=== PATIENT | female | born 1950 | race Caucasian/White ===

== ENCOUNTER 2017-03-07 08:35 | Emergency (ER) | payer MEDICARE, OTHER ==
[2017-03-07] MEDS ORDERED: METHYLPREDNISOLONE PF 125MG/VIAL IM ONE (09:05)
[2017-03-07] MEDS ORDERED: DIPHENHYDRAMINE HCL 25 MG CAPSULE PO ONE (09:07)
--- NOTE | 2017-03-07 09:14 | Emergency Department Record ---
History of Present Illness - General Chief complaint: Rash Stated complaint: RASH,ARMS FACE,ABDOMAN(POISON) Time Seen by Provider: 03/07/17 09:02 Source: Patient Mode of Arrival: Ambulatory Limitations: No limitations - History of Present Illness Initial comments: pt has rash on face, arms and abdomen that is poison faith. complaint: Rash Onset/Timin -: Days(s) Severity: Mild Consistency: Constant Improves with: Topical medication Worsens with: None Context: Other Associated symptoms: Denies other symptoms Treatments Prior to Arrival: Benadryl - Related Data Home Medications Medication Instructions Recorded Confirmed Last Taken Aspirin [Aspir-Low] 81 mg PO DAILY 03/07/17 03/07/17 03/07/17 Atorvastatin Calcium 20 mg PO DAILY 03/07/17 03/07/17 03/06/17 Calcium Carbonate/Vitamin D3 1 tab PO TID 03/07/17 03/07/17 03/07/17 08:55 [Calcium 600 with Vit D Chew Tb] Lisinopril [Lisinopril] 10 mg PO DAILY 03/07/17 03/07/17 03/06/17 Metformin HCl [Metformin HCl] 500 mg PO BID 03/07/17 03/07/17 03/07/17 [place]-3/Dha/Epa/Fish Oil [Fish Oil 1,000 mg PO BID 03/07/17 03/07/17 03/07/17 Conc 1,000 mg Softgel] Paroxetine HCl [Paroxetine HCl] 20 mg PO DAILY 03/07/17 03/07/17 03/07/17 Previous Rx's Medication Instructions Recorded Methylprednisolone [Medrol Dose 4 mg PO ASDIR #1 tab.ds.pk 03/07/17 Pack] Allergies Allergy/AdvReac Type Severity Reaction Status Date / Time No Known Drug Intolerances Allergy Unknown Unverified 01/23/14 10:00 Travel Screening - Travel/Exposure Within Last 30 Days Have you traveled within the last 30 days?: No - Travel/Exposure Within Last Year Have you traveled outside the [place] in the last year?: No - Additonal Travel Details Have you been exposed to anyone with a communicable illness?: No - Travel Symptoms Symptom Screening: None Review of Systems Reviewed: No additional complaints except as noted below Constitutional: Reports: As per HPI. Denies: Chills, Fever, Malaise, Night sweats, Weakness, Weight change Eyes: Reports: As per HPI. Denies: Eye discharge, Eye pain, Photophobia, Vision change ENT: Reports: As per HPI. Denies: Congestion, Dental pain, Ear pain, Epistaxis , Hearing loss, Throat pain Respiratory: Reports: As per HPI. Denies: Cough, Dyspnea, Hemoptysis, Stridor, Wheezes Cardiovascular: Reports: As per HPI. Denies: Arrhythmia, Chest pain, Dyspnea on exertion, Edema, Murmurs, Orthopnea, Palpitations, Paroxysmal nocturnal dyspnea, Rheumatic Fever, Syncope Endocrine: Reports: As per HPI. Denies: Fatigue, Heat or cold intolerance, Polydipsia, Polyuria Gastrointestinal: Reports: As per HPI. Denies: Abdominal pain, Constipation, Diarrhea, Hematemesis, Hematochezia, Melena, Nausea, Vomiting Genitourinary: Reports: As per HPI. Denies: Abnormal menses, Discharge, Dyspareunia, Dysuria, Frequency, Hematuria, Incontinence, Retention, Urgency Musculoskeletal: Reports: As per HPI. Denies: Arthralgia, Back pain, Gout, Joint swelling, Myalgia, Neck pain Skin: Reports: As per HPI. Denies: Bruising, Change in color, Change in hair/ nails, Lesions, Pruritus, Rash Neurological: Reports: As per HPI. Denies: Abnormal gait, Confusion, Headache, Numbness, Paresthesias, Seizure, Tingling, Tremors, Vertigo, Weakness Psychiatric: Reports: As per HPI. Denies: Anxiety, Auditory hallucinations, Depression, Homicidal thoughts, Suicidal thoughts, Visual hallucinations Hematological/Lymphatic: Reports: As per HPI. Denies: Anemia, Blood Clots, Easy bleeding, Easy bruising, Swollen glands Past Medical History - SOCIAL HISTORY Smoking Status: Never smoker Alcohol Use: None Drug Use: None - RESPIRATORY Hx Respiratory Disorders: No - CARDIOVASCULAR Hx Cardio Disorders: Yes Hx Hypertension: Yes Comment:: high cholesterol - NEURO Hx Neuro Disorders: No - GI Hx GI Disorders: Yes Hx of Polyps: Yes - Hx Genitourinary Disorders: No - ENDOCRINE Hx Endocrine Disorders: Yes Hx Thyroid Disease: Yes (hx in childhood) - MUSCULOSKELETAL Hx Musculoskeletal Disorders: No - PSYCH Hx Psych Problems: Yes Hx Anxiety: Yes - HEMATOLOGY/ONCOLOGY Hx Hematology/Oncology Disorders: Yes Hx Cancer: Yes (Breast-Left) Hx Chemotherapy: Yes (last May 2011) Hx Radiation Therapy: Yes (ast 2010) Family Medical History Any Significant Family History?: Yes Hx Cancer: Mother, Grandparents *Cancer Comment: breast, liver, Hx Diabetes: Brother/Sister Hx Heart Disease: Father, Brother/Sister Hx HTN: Father, Mother, Children, Brother/Sister Hx Resp Disorders: Grandparents *Resp Comment: emphysema Hx Stroke: Father Physical Exam - General General Appearance: Alert, Oriented x3, Cooperative, Mild distress - Head Head exam: Normal inspection - Eye Eye exam: Normal appearance, PERRL, EOMI Pupils: Normal accommodation - ENT ENT exam: Normal exam, Mucous membranes moist, Normal external ear exam, Normal orophraynx Ear exam: Normal external inspection. negative: External canal tenderness Nasal Exam: Normal inspection. negative: Discharge, Sinus tenderness Mouth exam: Normal external inspection, Tongue normal Teeth exam: Normal inspection. negative: Dental caries Throat exam: Normal inspection. negative: Tonsillar erythema, Tonsillar exudate - Neck Neck exam: Normal inspection, Full ROM. negative: Tenderness - Respiratory Respiratory exam: Normal lung sounds bilaterally. negative: Respiratory distress - Cardiovascular Cardiovascular Exam: Regular rate, Normal rhythm, Normal heart sounds - GI/Abdominal GI/Abdominal exam: Soft, Normal bowel sounds. negative: Tenderness - Rectal Rectal exam: Deferred - exam: Deferred - Extremities Extremities exam: Normal inspection, Full ROM, Normal capillary refill. negative: Tenderness - Back Back exam: Reports: Normal inspection, Full ROM. Denies: Muscle spasm, Rash noted, Tenderness - Neurological Neurological exam: Alert, CN II-XII intact, Normal gait, Oriented X3 - Psychiatric Psychiatric exam: Normal affect, Normal mood - Skin Skin exam: Abrasion, Dry, Erythema, Intact, Normal color, Rash, Warm Distribution of rash: Abdomen, Face, RUE, LUE Description of rash: Other (linear rash. excoriations) Course Vital Signs 03/07/17 08:39 Temperature 97.4 F L Pulse Rate 84 Respiratory 14 Rate Blood Pressure 109/63 Pulse Ox 95 Disposition Disposition: Discharge Clinical Impression: Poison faith dermatitis Disposition: Home, Self-Care Condition: (1) Good Instructions: Poison Faith (ED) Additional Instructions: follow up with family doctor. return sooner if worse.. Prescriptions: Methylprednisolone [Medrol Dose Pack] 4 mg PO ASDIR #1 tab.ds.pk Forms: Patient Portal Access
== END 2017-03-07 10:11 | disposition home or self-care (01) ==
LOC: ER 08:35
DX: L23.7 Allergic contact dermatitis due to plants, except food (principal)
CPT/HCPCS: 96372; 99283; J2930

== ENCOUNTER 2018-05-08 09:52 | Emergency (ER) | payer MEDICARE, OTHER ==
[2018-05-08] MEDS ORDERED: Diph,Pert(Acell),Tet Vac 0.5 ML SYR IM ONE (10:08)
--- NOTE | 2018-05-08 10:12 | Emergency Department Record ---
History of Present Illness - General Chief Complaint: Laceration(s) Stated Complaint: LAC R HAND Time Seen by Provider: 05/08/18 10:03 Source: Patient Mode of Arrival: Ambulatory Limitations: No limitations - History of Present Illness Initial Commments: The patient is here due to injuring her R hand about 30 minutes ago. She ran banged it on a fence post while working out in the yard. There is a laceration to the dorsal distal hand but the patient denies any numbness or weakness. Her Td is not UTD. Onset/Timin -: Minutes(s) Place: Park Context: Accidental - [place] Coma Scale Eye Response: (4) Open spontaneously Motor Response: (6) Obeys commands Verbal Response: (5) Oriented [place] Total: 15 - Related Data Patient Tetanus UTD (within 5 yrs): No Previous Rx's Medication Instructions Recorded Cephalexin [Keflex] 500 mg PO TID #15 cap 05/08/18 Allergies Allergy/AdvReac Type Severity Reaction Status Date / Time No Known Drug Intolerances Allergy Unknown HYPERSENSIT Verified 05/08/18 10:20 IVITY Travel Screening - Travel/Exposure Within Last 30 Days Have you traveled within the last 30 days?: No - Travel/Exposure Within Last Year Have you traveled outside the [place] in the last year?: No - Additonal Travel Details Have you been exposed to anyone with a communicable illness?: No - Travel Symptoms Symptom Screening: None Review of Systems Constitutional: Denies: Chills, Fever Eyes: Denies: Eye discharge ENT: Denies: Congestion Respiratory: Denies: Cough, Dyspnea Past Medical History - SOCIAL HISTORY Smoking Status: Never smoker Alcohol Use: None Drug Use: None - RESPIRATORY Hx Respiratory Disorders: No - CARDIOVASCULAR Hx Cardio Disorders: Yes Hx Hypertension: Yes Comment:: high cholesterol - NEURO Hx Neuro Disorders: No - GI Hx GI Disorders: Yes Hx of Polyps: Yes - Hx Genitourinary Disorders: No - ENDOCRINE Hx Endocrine Disorders: Yes Hx Thyroid Disease: Yes (hx in childhood) - MUSCULOSKELETAL Hx Musculoskeletal Disorders: No - PSYCH Hx Psych Problems: Yes Hx Anxiety: Yes - HEMATOLOGY/ONCOLOGY Hx Hematology/Oncology Disorders: Yes Hx Cancer: Yes (Breast-Left) Hx Chemotherapy: Yes (last May 2011) Hx Radiation Therapy: Yes (ast 2010) Family Medical History Any Significant Family History?: Yes Hx Cancer: Mother, Grandparents *Cancer Comment: breast, liver, Hx Diabetes: Brother/Sister Hx Heart Disease: Father, Brother/Sister Hx HTN: Father, Mother, Children, Brother/Sister Hx Resp Disorders: Grandparents *Resp Comment: emphysema Hx Stroke: Father Physical Exam - General General Appearance: Alert, Oriented x3, Cooperative, No acute distress - Head Head exam: Atraumatic, Normocephalic, Normal inspection - Eye Eye exam: Normal appearance, PERRL - Extremities Extremities exam: Normal capillary refill, Tenderness (mildly to the dorsal hand.), Other (The fingers are NVI. There also is a mild soft tissue hematoma to the L forearm area with mild abrasions but no bony tenderness. The L arm and hand are NVI.). negative: Normal inspection (There is a 3 cm laceration to the distal dorsal hand.), Joint swelling Image of Hand: 1 - There is a 2 cm laceration present with a mild hematoma. Course Vital Signs 05/08/18 09:55 Temperature 98.4 F Pulse Rate 79 Respiratory 18 Rate Blood Pressure 118/64 Pulse Ox 94 L - Reevaluation(s) Reevaluation #1: Procedure note: The R hand lac was anesth. with 3 CC's [place] 1% with Epi. The wound was prepped with betadine and lavaged with sterile saline. There were no tendons involved or any FB's visualized. The lac was closed 6 4.0 nylon sutures. There were no complications. 05/08/18 10:48 Medical Decision Making - Data Complexity MDM Data: X-Ray Ordered and/or Reviewed - Radiology Data Radiology results: Report reviewed (R hand: Neg.) Disposition Disposition: Discharge Clinical Impression: Laceration of hand Qualifiers: Encounter type: initial encounter Foreign body presence: without foreign body Laterality: right Qualified Code(s): S61.411A - Laceration without foreign body of right hand, initial encounter Disposition: Home, Self-Care Condition: (2) Stable Instructions: Laceration (ED) Additional Instructions: Keep dry for 2 days then wash daily with soap and water. No soaking or swimming for 10 days. Please take the Keflex as directed and return to the ER for any signs of infection. Have the sutures removed in 10 days. Prescriptions: Cephalexin [Keflex] 500 mg PO TID #15 cap Forms: Patient Portal Access Time of Disposition: 10:51 Quality - Quality Measures Quality Measures: N/A - Blood Pressure Screening View Details: Yes Does Patient Have Any of the Following: No Blood Pressure Classification: Normal BP Reading Systolic Measurement: 118 Diastolic Measurement: 64 Screening for High Blood Pressure: < Normal BP, F/U Not Required > [G8783]
--- NOTE | 2018-05-10 10:01 | RADIOLOGY REPORT ---
EXAM: RIGHT HAND HISTORY: CRUSH INJURY AND LACERATION OF THE RIGHT HAND. SOFT TISSUE SWELLING BETWEEN THE SECOND AND THIRD FINGERS. TECHNIQUE: Three views of the right hand were obtained. Comparison: None. Encounter: Initial. FINDINGS: There is soft tissue swelling along the dorsum of the hand at the level of the metacarpal heads. There is no associated foreign body. There is no visible acute fracture or dislocation. There are mild multifocal arthritic changes. Chronic calcific densities are noted adjacent to the ulnar styloid process and along the dorsum of the third PIP joint. IMPRESSION: 1. NO ACUTE FRACTURE OR FOREIGN BODY. 2. DORSAL SOFT TISSUE SWELLING. 3. ADDITIONAL CHRONIC FINDINGS ABOVE. JOB NUMBER: [id number] MTDD
== END 2018-05-08 11:00 | disposition home or self-care (01) ==
LOC: ER 09:52
DX: S61.411A Laceration without foreign body of right hand, initial encounter (principal); S50.812A Abrasion of left forearm, initial encounter; W22.8XXA Striking against or struck by other objects, initial encounter; Y92.830 Public park as the place of occurrence of the external cause; I10 Essential (primary) hypertension
CPT/HCPCS: 12001; 90715; 96372; 99283

== ENCOUNTER 2018-05-18 08:39 | Emergency (ER) | payer MEDICARE, OTHER ==
--- NOTE | 2018-05-18 08:51 | Emergency Department Record ---
History of Present Illness - General Chief Complaint: Suture removal Stated Complaint: SUTURE REMOVAL Time Seen by Provider: 05/18/18 08:45 Source: Patient Mode of arrival: Ambulatory Limitations: No limitations - History of Present Illness Initial Comments: left dorsal hand sutures placed here 10 days prior. No complaints. Healing well. Complaint: Suture/staple removal Onset/Timin -: Days(s) Initial Visit For: Laceration Returns Today for: Staple/stitch removal Symptoms Since Prior Visit: No new symptoms Associated Symptoms: None - Related Data Allergies Allergy/AdvReac Type Severity Reaction Status Date / Time No Known Drug Intolerances Allergy Unknown HYPERSENSIT Verified 05/18/18 08:43 IVITY Travel Screening - Travel/Exposure Within Last 30 Days Have you traveled within the last 30 days?: No Review of Systems Reviewed: No additional complaints except as noted below Constitutional: Denies: Chills, Fever ENT: Denies: Congestion Respiratory: Denies: Cough Cardiovascular: Denies: Chest pain Gastrointestinal: Denies: Abdominal pain Skin: Reports: Bruising Psychiatric: Denies: Anxiety Hematological/Lymphatic: Denies: Anemia Past Medical History - SOCIAL HISTORY Smoking Status: Never smoker Alcohol Use: None Drug Use: None - RESPIRATORY Hx Respiratory Disorders: No - CARDIOVASCULAR Hx Cardio Disorders: Yes Hx Hypertension: Yes Comment:: high cholesterol - NEURO Hx Neuro Disorders: No - GI Hx GI Disorders: Yes Hx of Polyps: Yes - Hx Genitourinary Disorders: No - ENDOCRINE Hx Endocrine Disorders: Yes Hx Thyroid Disease: Yes (hx in childhood) - MUSCULOSKELETAL Hx Musculoskeletal Disorders: No - PSYCH Hx Psych Problems: Yes Hx Anxiety: Yes - HEMATOLOGY/ONCOLOGY Hx Hematology/Oncology Disorders: Yes Hx Cancer: Yes (Breast-Left) Hx Chemotherapy: Yes (last May 2011) Hx Radiation Therapy: Yes (ast 2010) Family Medical History Any Significant Family History?: Yes Hx Cancer: Mother, Grandparents *Cancer Comment: breast, liver, Hx Diabetes: Brother/Sister Hx Heart Disease: Father, Brother/Sister Hx HTN: Father, Mother, Children, Brother/Sister Hx Resp Disorders: Grandparents *Resp Comment: emphysema Hx Stroke: Father Physical Exam - General General Appearance: Alert, Oriented x3, Cooperative, No acute distress - Head Head exam: Atraumatic - Eye Eye exam: Normal appearance - Extremities Extremities exam: Full ROM, Normal capillary refill. negative: Tenderness ( healed laceration dorsal right hand. [address] No erythema or warmth. ) - Neurological Neurological exam: Alert, Normal gait, Oriented X3 - Psychiatric Psychiatric exam: Normal affect Course Vital Signs 05/18/18 08:44 Temperature 97.6 F Pulse Rate 70 Respiratory 20 Rate Blood Pressure 109/59 Pulse Ox 98 Medical Decision Making - Management Options MDM Management: No Additional Work-up Planned Disposition Disposition: Discharge Clinical Impression: Encounter for removal of sutures Disposition: Home, Self-Care Condition: (1) Good Instructions: Stitches Removal (ED) Forms: Patient Portal Access Quality - Quality Measures Quality Measures: N/A - Blood Pressure Screening Does Patient Have Any of the Following: No Blood Pressure Classification: Normal BP Reading Systolic Measurement: 109 Diastolic Measurement: 59 Screening for High Blood Pressure: < Normal BP, F/U Not Required > [G8783]
== END 2018-05-18 08:59 | disposition home or self-care (01) ==
LOC: ER 08:39
DX: Z48.02 Encounter for removal of sutures (principal)

== ENCOUNTER 2018-11-12 15:40 | Emergency (ER) | payer MEDICARE, OTHER ==
--- NOTE | 2018-11-12 16:08 | Emergency Department Record ---
History of Present Illness - General Chief Complaint: Fall Injury Stated Complaint: FALL INJURY ,LT ANKLE Time Seen by Provider: 11/12/18 16:06 Source: Patient Mode of Arrival: Ambulatory Limitations: No limitations - History of Present Illness Initial Comments: 68 yo female presents with left ankle pain and swelling. She slipped on ice. She has medial and lateral ankle pain. No numbness or tingling. No lacerations or abrasions. No history of prior orthopedic disease in that ankle. MD Complaint: Fall Onset/Timin -: Hour(s) Fall From: Standing When Fall Occurred: 1-3 hours [employer]IVE Fall Witnessed: No Place Fall Occurred: Home Loss of Consciousness: None Prolonged Down Time?: No Symptoms Prior to Fall: None Location - Extremities: Left: Ankle Severity: Mild Severity scale (1-10): 4 Quality: Aching Associated Symptoms: Denies - [place] Coma Scale Eye Response: (4) Open spontaneously Motor Response: (6) Obeys commands Verbal Response: (5) Oriented [place] Total: 15 - Related Data Previous Rx's Medication Instructions Recorded Hydrocodone/Acetaminophen [[place] 1 tab PO Q6H PRN #10 tab 11/12/18 5mg/325mg] Allergies Allergy/AdvReac Type Severity Reaction Status Date / Time No Known Drug Intolerances Allergy Unknown HYPERSENSIT Verified 11/12/18 15:48 IVITY acetaminophen [From Percocet] AdvReac VOMITING Verified 11/12/18 15:49 oxycodone [From Percocet] AdvReac VOMITING Verified 11/12/18 15:49 Travel Screening - Travel/Exposure Within Last 30 Days Have you traveled within the last 30 days?: No Review of Systems Constitutional: Denies: Chills, Fever, Malaise, Weakness Eyes: Denies: Eye discharge ENT: Denies: Congestion, Throat pain Respiratory: Denies: Cough Cardiovascular: Denies: Chest pain, Palpitations, Syncope Endocrine: Denies: Fatigue Gastrointestinal: Denies: Abdominal pain, Diarrhea, Nausea, Vomiting Genitourinary: Denies: Dysuria, Urgency Musculoskeletal: Reports: As per HPI, Arthralgia. Denies: Back pain, Joint swelling, Myalgia Skin: Denies: Bruising, Change in color, Rash Neurological: Denies: Headache, Numbness, Weakness Psychiatric: Denies: Anxiety Hematological/Lymphatic: Denies: Easy bleeding, Easy bruising Past Medical History - SOCIAL HISTORY Smoking Status: Never smoker Alcohol Use: None Drug Use: None - RESPIRATORY Hx Respiratory Disorders: No - CARDIOVASCULAR Hx Cardio Disorders: Yes Hx Hypertension: Yes Comment:: high cholesterol - NEURO Hx Neuro Disorders: No - GI Hx GI Disorders: Yes Hx of Polyps: Yes - Hx Genitourinary Disorders: No - ENDOCRINE Hx Endocrine Disorders: Yes Hx Thyroid Disease: Yes (hx in childhood) - MUSCULOSKELETAL Hx Musculoskeletal Disorders: No - PSYCH Hx Psych Problems: Yes Hx Anxiety: Yes - HEMATOLOGY/ONCOLOGY Hx Hematology/Oncology Disorders: Yes Hx Cancer: Yes (Breast-Left) Hx Chemotherapy: Yes (last May 2011) Hx Radiation Therapy: Yes (ast 2010) Family Medical History Any Significant Family History?: Yes Hx Cancer: Mother, Grandparents *Cancer Comment: breast, liver, Hx Diabetes: Brother/Sister Hx Heart Disease: Father, Brother/Sister Hx HTN: Father, Mother, Children, Brother/Sister Hx Resp Disorders: Grandparents *Resp Comment: emphysema Hx Stroke: Father Physical Exam - General General Appearance: Alert, Oriented x3, Cooperative, No acute distress Limitations: No limitations - Head Head exam: Atraumatic, Normal inspection - Eye Eye exam: Normal appearance. negative: Conjunctival injection - ENT ENT exam: Normal exam Ear exam: Normal external inspection Nasal Exam: Normal inspection Mouth exam: Normal external inspection - Neck Neck exam: Normal inspection - Respiratory Respiratory exam: Normal lung sounds bilaterally. negative: Respiratory distress - Cardiovascular Cardiovascular Exam: Regular rate, Normal rhythm, Normal heart sounds Peripheral Pulses: 2+: Dorsalis Pedis (L) - Rectal Rectal exam: Deferred - exam: Deferred - Extremities Extremities exam: Full ROM, Joint swelling, Normal capillary refill, Tenderness (tender medial and lateral ankle). negative: Normal inspection - Back Back exam: Denies: CVA tenderness (R), CVA tenderness (L) - Neurological Neurological exam: Alert, Oriented X3 - Psychiatric Psychiatric exam: Normal affect, Normal mood - Skin Skin exam: Dry, Intact, Normal color, Warm, Other (Intact skin). negative: Abrasion Course Vital Signs 11/12/18 15:50 Temperature 97.7 F Pulse Rate 90 Respiratory 20 Rate Blood Pressure 125/79 Pulse Ox 96 - Reevaluation(s) Reevaluation #1: 11/12/18 17:22 The XR demonstrates a tri-malleolar fracture. Minimal displacement. I SW Dr Dejesus for follow up The patient will be placed in a [employer] boot She has a wheel chair and crutches at home 11/12/18 17:41 Disposition Disposition: Discharge Clinical Impression: Trimalleolar fracture of ankle, closed Qualifiers: Encounter type: initial encounter Laterality: left Qualified Code(s): S82.852A - Displaced trimalleolar fracture of left lower leg, initial encounter for closed fracture Disposition: Home, Self-Care Condition: (1) Good Instructions: Ankle Fracture (ED) Additional Instructions: Keep the foot and ankle elevated to prevent swelling Do not walk on the ankle or put any weight on the ankle. This can worsen the breath Call Dr Dejesus on Thursday to schedule your follow up appointment to be seen in the [place] office on Thursday ([phone]) Return or be seen if any new symptoms or concerns.. Prescriptions: Hydrocodone/Acetaminophen [[place] 5mg/325mg] 1 tab PO Q6H PRN #10 tab PRN Reason: Pain - General Referrals: DEVENDRA DEJESUS [DOCTOR OF OSTEOPATH] - [facility] [Provider Group] Forms: Patient Portal Access Time of Disposition: 17:41 Quality - Quality Measures Quality Measures: N/A - Blood Pressure Screening Does Patient Have Any of the Following: No Blood Pressure Classification: Pre-Hypertensive BP Reading Systolic Measurement: 125 Diastolic Measurement: 79 Screening for High Blood Pressure: < Pre-Hypertensive BP, F/U Documented > [ G8950] Pre-Hypertensive Follow-up Interventions: Referral to alternative/primary care provider.
--- NOTE | 2018-11-14 11:18 | RADIOLOGY REPORT ---
DATE: 11/12/2018. EXAM: LEFT ANKLE RADIOGRAPHS. HISTORY: Fall with lateral ankle pain. TECHNIQUE: Three views of the left ankle. COMPARISON: None. FINDINGS: Diffuse ankle soft tissue swelling. Obliquely oriented fracture involving the distal fibula diametaphysis. Fracture line appears to breach the medial fibular cortex above the level of the tibiotalar joint space. Small, displaced calcified fragments near the distal tip of the medial malleolus. Vertically oriented fracture line appears to extend through the posterior malleolus at the distal tibia. No significant ankle mortis widening appreciated. Talar dome appears intact. A rounded, 5.0 mm calcified fragment is seen near the anterior tibiotalar region. IMPRESSION: 1. TRIMALLEOLAR ACUTE ANKLE FRACTURE ABOVE. 2. SMALL, 5.0 MM CALCIFIED FRAGMENT PROJECTING ANTERIOR TO THE TIBIOTALAR JOINT SPACE ON LATERAL VIEW; MAY REPRESENT A DISPLACED COMPONENT OF LATERAL OR MEDIAL MALLEOLAR FRACTURES VERSUS AN ADDITIONAL FRACTURE FRAGMENT FROM THE ANTERIOR TIBIAL PLAFOND. 3. DIFFUSE ANKLE SOFT TISSUE SWELLING. JOB NUMBER: [id number] [facility]
== END 2018-11-12 17:57 | disposition home or self-care (01) ==
LOC: ER 15:40
DX: S82.852A Displaced trimalleolar fracture of left lower leg, initial encounter for closed fracture (principal); W00.0XXA Fall on same level due to ice and snow, initial encounter; Y92.096 Garden or yard of other non-institutional residence as the place of occurrence of the external cause; I10 Essential (primary) hypertension
CPT/HCPCS: 99283; 99284

== ENCOUNTER 2018-11-18 12:02 | Day surgery (SDC) | payer MEDICARE, OTHER ==
[2018-11-18] MEDS ORDERED: FENTANYL PF 100MCG/2ML VIAL IV ONE (12:03)
[2018-11-18] MEDS ORDERED: MIDAZOLAM HCL 2MG/2ML VIAL IV ONE (12:03)
[2018-11-18] MEDS ORDERED: PROPOFOL 10 MG/ML VIAL IV ONE (12:03)
[2018-11-18] MEDS ORDERED: CEFAZOLIN 2 Gram 2 GM/50 ML BAG IVPB ONE (12:03)
[2018-11-18] MEDS ORDERED: DIPHENHYDRAMINE HCL 50 MG/ML VIAL IVP ONE (12:03)
[2018-11-18] MEDS ORDERED: ACETAMINOPHEN 1,000 MG/100 ML BTL IV ONE (12:03)
[2018-11-18] MEDS ORDERED: LIDOCAINE 2% MDV (20MG/ML) 20ML VIAL IV ONE (12:03)
[2018-11-18] MEDS ORDERED: SEVOFLURANE 250 ML INH ONE (12:03)
[2018-11-18] MEDS ORDERED: ONDANSETRON HCL IV 4 MG/2 ML VIAL IVP ONE (12:03)
--- NOTE | 2018-11-22 08:11 | Operative Note ---
DATE OF SURGERY: 11/18/2018 Surgeon: Dieudonne Lock DO PREOPERATIVE DIAGNOSIS: Trimalleolar fracture of the left ankle. POSTOPERATIVE DIAGNOSIS: Trimalleolar fracture of the left ankle. OPERATION: Open reduction and internal fixation of the left ankle. PROCEDURE: This 68-year-old female was taken to the operating room and placed in the supine position on the operating room table. A general anesthetic was administered and the left lower extremity was elevated, prepped with Hibiclens, and draped in the usual sterile fashion. A bump had been placed under the left hip to help internally rotate the left lower extremity. The lower leg was exsanguinated, and the tourniquet inflated to 200 mmHg around the proximal calf. A lateral ankle incision was made dissecting down through the skin and subcutaneous tissue. Hemostasis was obtained with the electrocautery. Fracture site easily identified. Blunt and sharp dissection was carried down to expose the fracture, which was mildly comminuted with a butterfly fragment posteriorly. The fracture was easily reduced with a lobster claw but I did not feel that I could place a lag screw because of the comminution posteriorly. Therefore, we affixed a 1/3 semi-tubular plate (Arthrex) using 4.0 cancellous screws distally and 3.5 mm cortical screws proximally, 3 screws proximally and 2 distally, which gave us excellent purchase. Because of the tear of the deltoid ligament with bony fragments present medially, there was some gapping medially preoperatively, and with reducing the fracture, this reduced nicely. To hold this in place, an Arthrex tightrope was used drilling through the plate the third hole from the bottom and drilled across the medial side. The button was then flipped on the medial cortex and then traction placed on the sutures to draw this tightly together and hold it securely in place. Again the image intensifier was used in the AP and lateral projections to confirm satisfactory reduction of the fracture. The posterior malleolar fracture fragment was extremely small and was a little more than a small avulsion-type injury but not big enough to place internal fixation and actually did not involve any of the articular surface. The wound was then copiously irrigated with lactated Ringer's solution, and the periosteum and subcutaneous tissue closed with 4-0 Vicryl and the skin with 4-0 nylon suture. Sterile dressings were applied with a plaster splint. The patient was taken to the recovery room in satisfactory condition. GROSS PATHOLOGY: This patient demonstrated a trimalleolar fracture as described above which was fixed with an Arthrex 1/3 semi-tubular plate with two 4.0 cancellous and three 3.5 cortical screws through the 6-hole plate. the third home from the bottom of the plate was used to draw the tibia laterally to secure anatomic reduction. CC: YAEL NUÑEZ MD, FACP [facility]
== END 2018-11-18 16:10 | disposition home or self-care (01) ==
LOC: SUR 12:02
PROVIDERS: ATTEND Orthopaedic Surgery
DX: S82.855A Nondisplaced trimalleolar fracture of left lower leg, initial encounter for closed fracture (principal); I10 Essential (primary) hypertension; E78.00 Pure hypercholesterolemia, unspecified
CPT/HCPCS: 27822; 01480; 64415; 36416; 82948; 76942; J2405; J3010; J0690; J1200